=== PATIENT | male | born 1975 | race Caucasian/White ===

== ENCOUNTER 2020-04-18 12:00 | Emergency (ER) | payer SELFPAY ==
[~2020-04-18] VITALS: Ht 172.7 cm; Wt 96.2 kg
--- NOTE | 2020-04-18 12:13 | NUR ---
patient left AMA without seen by stating "I'm sorry guys I think I'm ok". left thumb with small cut no bleeding.
--- NOTE | 2020-04-18 12:14 | NUR ---
Pt stated " I'm leaving " and walked out of the ER.
== END 2020-04-18 12:17 | disposition left against medical advice (07) ==
LOC: ER 12:00
DX: S61.012A Laceration without foreign body of left thumb without damage to nail, initial encounter (principal); W27.8XXA Contact with other nonpowered hand tool, initial encounter; Y93.89 Activity, other specified; Y92.89 Other specified places as the place of occurrence of the external cause
CPT/HCPCS: A4663